=== PATIENT | female | born 1930 | race Hispanic/Latino ===

== ENCOUNTER 2017-01-10 16:38 | Emergency (ER) | payer MEDICARE ==
[2017-01-10 16:51] VITALS: O2SAT 98
--- NOTE | 2017-01-10 17:40 | ED PDOC ---
"HPI: Back Time Seen by Provider: 01/10/17 16:57 Chief Complaint (Nursing): Back Pain Chief Complaint (Provider): back pain History Per: Patient History/Exam Limitations: no limitations Additional Complaint(s): PT with hx of MT x 2, HTN, CVA in ED for eval of back injury sustained- yesterday after slip and fall in [facility] [facility]. denied pain at time of injury this AM took Tylenol and naproxen due to pain and noted the pain to be persistent-states its sharp and deep unable to pin point pain and not reproducible made somewhat worse with inspiration denies CP, SOB, CP, epigastirc pain, abd pain. Past Medical History Reviewed: Historical Data, Nursing Documentation, Vital Signs Vital Signs: Last Vital Signs Temp 98 F 01/10/17 16:48 Pulse 72 01/10/17 16:48 Resp 20 01/10/17 16:48 BP 150/77 01/10/17 16:48 Pulse Ox 98 01/10/17 16:48 - Medical History PMH: Atrial Fibrillation, CAD, Fractures (Vertebral), HTN, Hypercholesterolemia Denies: CVA, Diabetes, Chronic Kidney Disease - Surgical History Surgical History: Coronary Stent, Tonsillectomy - Family History Family History: States: Unknown Family Hx - Home Medications Home Medications: Ambulatory Orders Medication Instructions Recorded Aspirin [Ecotrin] 325 mg PO DAILY 04/06/16 Apixaban [Eliquis] 5 mg OD BID #0 tab 08/14/16 DULoxetine [Cymbalta] 30 mg PO BID #0 ecc 08/14/16 Gabapentin [Neurontin] 600 mg PO TID #0 tablet 08/14/16 Lidocaine 5% [Lidoderm] 1 patch TD PRN PRN #0 patch 08/14/16 Metoprolol Succinate [Toprol XL] 37.5 mg PO DAILY #0 tab 08/14/16 Simvastatin [Zocor] 40 mg PO HS #0 tablet 08/14/16 Ketorolac Tromethamine [Toradol] 10 mg PO Q6 #30 tab 01/10/17 Nitrofurantoin Macrocrystals 100 mg PO BID #14 cap 01/10/17 [Macrobid] - Allergies Allergies/Adverse Reactions: Allergies Allergy/AdvReac Type Severity Reaction Status Date / Time No Known Allergies Allergy Verified 01/10/17 16:48 Review of Systems ROS Statement: Except As Marked, All Systems Reviewed And Found Negative Cardiovascular: Negative for: Chest Pain, Palpitations Gastrointestinal: Negative for: Nausea, Vomiting, Abdominal Pain Musculoskeletal: Positive for: Back Pain Physical Exam - Reviewed Nursing Documentation Reviewed: Yes Vital Signs Reviewed: Yes - Physical Exam Appears: Positive for: Well, Non-toxic, No Acute Distress Head Exam: Positive for: ATRAUMATIC, NORMAL INSPECTION, NORMOCEPHALIC Skin: Positive for: Normal Color, Warm, DRY Neck: Positive for: Normal, Painless ROM Cardiovascular/Chest: Positive for: Regular Rate, Rhythm Respiratory: Positive for: CNT, Normal Breath Sounds Gastrointestinal/Abdominal: Positive for: Soft Back: Positive for: Normal Inspection, Other (tenderness not reproducble. pt with tenderness to mid thoracic. ) Extremity: Positive for: Normal ROM Neurologic/Psych: Positive for: Alert, Oriented - Laboratory Results Result Diagrams: 01/10/17 17:28 01/10/17 17:28 - ECG ECG Rhythm: Positive for: Normal QRS, Sinus Rhythm, 1st Degree Heart Block O2 Sat by Pulse Oximetry: 98 - Progress ED Course And Treament: EKG/cbc/CMP/D-dimer and Pt/PTT/xray-due to onset of pain, pain not reproducible and taking Rx eloquis. Pt with elevated D-dimer will need to have CTA Re-evaluation Time: 21:57 Condition: Improved (improved after torodol IV. ) Medical Decision Making Medical Decision Making: Ct scan: FINDINGS: Artifacts: Motion artifact degrades image quality.Streak artifact degrades image quality. Heart, aorta and Pulmonary arteries: The heart is enlarged.There is trace fluid in pericardial recesses. There are coronary artery stents.There is no aneurysm or dissection. There is perfusion of the 3 arch vessels.There are vascular calcifications.There are no pulmonary emboli. Thyroid: There is asymmetric enlargement of the thyroid. There is prominence of the right lobe. There are small punctate calcifications in the right lobe. There is a heterogeneous 8mm right lower lobe nodule. Lungs and Pleural space: Trachea and main bronchi are patent. There are calcified pleural plaques at both lung apices. There is nodular pleural thickening along the lateral aspects of both upper hemithoraces. There are small calcified granulomas in the upper lobes.. There is pleuralparenchymal scarring at both lung apices. There is dependent atelectasis. There is scarring at the lung bases. There is no lobar or segmental consolidation. There is trace right effusion. There is minimal airspace disease in the right costophrenic angle. HENRY LEDEZMA | Final Radiology Report CONFIDENTIALITY STATEMENT This report is intended only for use by the referring physician, and only in accordance with law. If you received this in error, call [phone]. Page 2 of 2 Mediastinum: Esophagus is unremarkable. There are shotty mediastinal adenopathy. There is no hilar adenopathy. Bones/joints: Bony structures are osteopenic.There are degenerative changes in the osseus structures. There is compression fracture at T7 with wedging deformity. There are less severe compression deformities T4, T8 and T9 Soft tissues: unremarkable Lymph nodes: See above. Upper abdomen: There are no acute abnormalities in the visualized portion of the abdomen. IMPRESSION: Mild cardiomegaly with coronary artery stents, no aneurysm, dissection or pulmonary embolus; calcified pleural plaques at the lung apices with pleural-parenchymal scarring greatest in the apices; dependent atelectasis; minimal airspace disease/atelectasis at the right base; multiple compression fractures Additional findings as described above. Thank you for allowing us to participate in the care of your patient. Dictated and Authenticated by: Farrah Sheridan MD 01/10/2017 9:29 PM Eastern Time ([place] & [place]) Pt improved in ED with morphine and torodol. admits torodol improved pain. pt with dx compression T-spine fx. pt feels pain is controlled well enough at this time for d/c home and prefers to be d/c home. Pt given Rx for torodol PO , copy of CT report and advised to have pmd/orth spie f/u. Pt states she gets epidural IM for spinal stenosis and will f.u with him. Pt also with UTI- on UA will Rx macorbid advised to monitor symptoms if with fever chills to return to ED pt stable VS and well appearing. Disposition - Clinical Impression Clinical Impression: Thoracic spine fracture, UTI (urinary tract infection), uncomplicated - Patient ED Disposition Is Patient to be Admitted: No Counseled Patient/Family Regarding: Studies Performed, Diagnosis, Need For Followup, Rx Given - Disposition Disposition: Routine/Home Disposition Time: 21:52 Condition: IMPROVED Prescriptions: Nitrofurantoin Macrocrystals [Macrobid] 100 mg PO BID #14 cap Ketorolac Tromethamine [Toradol] 10 mg PO Q6 #30 tab Instructions: Urinary Tract Infection in Women (DC), Vertebral Compression Fracture (ED)"
[2017-01-10 17:57] LABS: BASO % 0.4 % (0.0-2.0); EOS # 0.1 K/uL (0.0-0.7); EOS % 0.9 % (0.0-4.0); HEMATOCRIT 39.4 % (34.0-47.0); LYMPH # 0.9 K/uL (1.0-4.3); LYMPH % 12.1 % (20.0-40.0); MEAN CELL VOLUME 92.4 fl (81.0-99.0); MEAN CORPUSCULAR HEMOGLOBIN 29.8 pg (27.0-31.0); MEAN CORPUSCULAR HGB CONC 32.2 g/dL (33.0-37.0); MEAN PLATELET VOLUME 8.6 fl (7.2-11.7); MONO # 0.7 K/uL (0.0-0.8); MONO % 9.6 % (0.0-10.0); NEUT # 5.7 K/uL (1.8-7.0); RED CELL DISTRIBUTION WIDTH 13.1 % (11.5-14.5); WHITE BLOOD COUNT 7.5 K/uL (4.8-10.8)
[2017-01-10 18:08] LABS: ALB/GLOB RATIO 1.2 (1.0-2.1); ALKALINE PHOSPHATASE 72 U/L (38-126); ALT/SGPT 40 U/L (9-52); AST/SGOT 45 U/L (14-36); BILIRUBIN,TOTAL 0.7 mg/dl (0.2-1.3); BLOOD UREA NITROGEN 22 mg/dl (7-17); CALCIUM 8.8 mg/dL (8.4-10.2); CARBON DIOXIDE 27 mmol/L (22-30); CHLORIDE 101 mmol/L (98-107); GFR AFRICAN-AMERICAN > 60; GLUCOSE,RANDOM 162 mg/dL (65-105); POTASSIUM 3.6 MMOL/L (3.6-5.0); SODIUM 144 mmol/l (132-148); TOTAL PROTEIN 6.9 G/DL (6.3-8.2)
[2017-01-10 19:12] LABS: PARTIAL THROMBOPLASTIN TIME 29.7 SECONDS (23.3-32.5)
[2017-01-10] MEDS ORDERED: Iodixanol 320 MG/ML 100 ML BOTTLE IV ONE (19:47)
[2017-01-10 20:06] LABS: RBC URINE 8 /hpf (0-3); URINE BACTERIA OCC (<OCC); URINE BILIRUBIN NEGATIVE (NEGATIVE); URINE BLOOD SMALL (NEGATIVE); URINE COLOR YELLOW (YELLOW); URINE GLUCOSE (UA) NEG (Normal); URINE KETONE TRACE mg/dL (NEGATIVE); URINE LEUKOCYTE ESTERASE LARGE Leu/uL (Negative); URINE PROTEIN 30 mg/dL (NEGATIVE); URINE UROBILINOGEN 0.2-1.0 mg/dL (0.2-1.0); WBC URINE 27 /hpf (0-5)
--- NOTE | 2017-01-10 21:29 | CT ---
EXAM: CT Angiography Chest With Intravenous Contrast. CLINICAL HISTORY: 86 years old, female; Pain; Chest pain and other: Back SOB; Type not specified; Additional info: Back pain/ sob/ elevatec ddimer TECHNIQUE: Axial computed tomographic angiography images of the chest with intravenous contrast using pulmonary embolism protocol. This CT exam was performed using one or more of the following dose reduction techniques: automated exposure control, adjustment of the mA and/or kV according to patient size, and/or use of iterative reconstruction technique. MIP reconstructed images were created and reviewed. Coronal and sagittal reformatted images were created and reviewed. CONTRAST: 99 mL of [id number] administered intravenously. EXAM DATE/TIME: 01/10/2017 7:35 PM COMPARISON: CR - CHEST TWO VIEWS (PA/LAT) 04/07/2016 9:28:21 AM FINDINGS: Artifacts: Motion artifact degrades image quality.Streak artifact degrades image quality. Heart, aorta and Pulmonary arteries: The heart is enlarged.There is trace fluid in pericardial recesses. There are coronary artery stents.There is no aneurysm or dissection. There is perfusion of the 3 arch vessels.There are vascular calcifications.There are no pulmonary emboli. Thyroid: There is asymmetric enlargement of the thyroid. There is prominence of the right lobe. There are small punctate calcifications in the right lobe. There is a heterogeneous 8mm right lower lobe nodule. Lungs and Pleural space: Trachea and main bronchi are patent. There are calcified pleural plaques at both lung apices. There is nodular pleural thickening along the lateral aspects of both upper hemithoraces. There are small calcified granulomas in the upper lobes.. There is pleural-parenchymal scarring at both lung apices. There is dependent atelectasis. There is scarring at the lung bases. There is no lobar or segmental consolidation. There is trace right effusion. There is minimal airspace disease in the right costophrenic angle. Mediastinum: Esophagus is unremarkable. There are shotty mediastinal adenopathy. There is no hilar adenopathy. Bones/joints: Bony structures are osteopenic.There are degenerative changes in the osseus structures. There is compression fracture at T7 with wedging deformity. There are less severe compression deformities T4, T8 and T9 Soft tissues: unremarkable Lymph nodes: See above. Upper abdomen: There are no acute abnormalities in the visualized portion of the abdomen. IMPRESSION: Mild cardiomegaly with coronary artery stents, no aneurysm, dissection or pulmonary embolus; calcified pleural plaques at the lung apices with pleural-parenchymal scarring greatest in the apices; dependent atelectasis; minimal airspace disease/atelectasis at the right base; multiple compression fractures Additional findings as described above.
[2017-01-10 22:55] VITALS: BP 138/78; PULSE 78; RESP 18; TEMP 98.2
--- NOTE | 2017-01-11 14:37 | CARD ---
APPROVED REPORT EKG Measurement Heart [id number] <Conclusion> Sinus rhythm with 1st degree AV block Possible Anterior infarct, age undetermined Abnormal ECG
--- NOTE | 2017-01-12 09:17 | RAD ---
HISTORY: back pain COMPARISON: Comparison is made to the previous study dated 11/04/2011 FINDINGS: BONES: Diffuse moderate osteopenia/osteoporosis is again noted. There are multiple compression deformities in the thoracic spine more prominent at T6 and T8 associated with mild kyphosis. The patient is status post kyphoplasty at L1. DISC SPACES: Severe degenerative changes associated with narrowing of the disc spaces and osteophyte formations more prominent at T9-T10. SOFT TISSUES: Normal. OTHER FINDINGS: None. IMPRESSION: Moderate to severe diffuse osteopenia/ osteoporosis. Multiple compression deformities more prominent at T6 and T8. Status post kyphoplasty at L1.
== END 2017-01-10 22:55 | disposition home or self-care (01) ==
LOC: H.ER 16:38
DX: S22.009A Unspecified fracture of unspecified thoracic vertebra, initial encounter for closed fracture (principal); W19.XXXA Unspecified fall, initial encounter; Y92.89 Other specified places as the place of occurrence of the external cause; N39.0 Urinary tract infection, site not specified; E78.00 Pure hypercholesterolemia, unspecified; I10 Essential (primary) hypertension; I25.10 Atherosclerotic heart disease of native coronary artery without angina pectoris; Z79.01 Long term (current) use of anticoagulants; Z79.82 Long term (current) use of aspirin; Z95.5 Presence of coronary angioplasty implant and graft
CPT/HCPCS: 71275; 72070; 80053; 81003; 84484; 85025; 85378; 85610; 85730; 93005; 96374; 96375; 99283; J1885; J2270; Q9967

== ENCOUNTER 2018-07-28 07:57 | Inpatient (IN) | payer MEDICARE, BC ==
[2018-07-28 08:06] VITALS: BMI 21.9
[2018-07-28 09:29] LABS: BASO % 0.3 % (0.0-2.0); EOS # 0.1 K/uL (0.0-0.7); EOS % 1.4 % (0.0-4.0); HEMOGLOBIN 13.4 g/dL (12.0-16.0); LYMPH # 2.1 K/uL (1.0-4.3); LYMPH % 24.4 % (20.0-40.0); MEAN CELL VOLUME 93.1 fl (81.0-99.0); MEAN CORPUSCULAR HEMOGLOBIN 30.7 pg (27.0-31.0); MEAN PLATELET VOLUME 8.5 fl (7.2-11.7); MONO # 0.5 K/uL (0.0-0.8); NEUT # 5.8 K/uL (1.8-7.0); NEUT % 67.9 % (50.0-75.0); NRBC % 0.1 % (0.0-0.0); RBC 4.37 Mil/uL (3.80-5.20); RED CELL DISTRIBUTION WIDTH 12.7 % (11.5-14.5); WHITE BLOOD COUNT 8.5 K/uL (4.8-10.8)
[2018-07-28 09:37] LABS: INR 1.6; PROTHROMBIN TIME 17.9 Seconds (9.8-13.1)
[2018-07-28 09:39] LABS: PARTIAL THROMBOPLASTIN TIME 37.2 Seconds (25.6-37.1)
[2018-07-28 09:43] LABS: BLOOD UREA NITROGEN 17 mg/dl (7-17); CALCIUM 9.2 mg/dL (8.4-10.2); GFR NON-AFRICAN AMERICAN 59
--- NOTE | 2018-07-28 09:54 | ED PDOC ---
HPI: Chest Pain Time Seen by Provider: 07/28/18 08:46 Chief Complaint (Nursing): Chest Pain Chief Complaint (Provider): Chest Pain History Per: Patient History/Exam Limitations: no limitations Onset/Duration Of Symptoms: Hrs (x 2) Current Symptoms Are (Timing): Still Present Quality: Burning, "Pain" Nitro Therapy Administered: Per Own Supply Additional History Per: Family (children at bedside ) Additional Complaint(s): 87 year old female with a history of CAD, HTN, heart attack and cardiac stents presents to the ED with intermittent, mid chest pain associated with mild difficulty breathing since 06:45 this morning. Patient describes a burning sensation in her throat. She took nitroglycerin at home prior to arrival. She takes metoprolol, Eliquis, aspirin, duloxetine furosemide regularly and had a dose of each medication this morning. Denies fever, cough and leg swelling. PMD: Dr. Campbell Past Medical History Reviewed: Historical Data, Nursing Documentation, Vital Signs Vital Signs: Last Vital Signs Temp 97.8 F 07/28/18 08:06 Pulse 107 H 07/28/18 08:06 Resp 17 07/28/18 08:06 BP 86/56 L 07/28/18 08:06 Pulse Ox 100 07/28/18 08:18 - Medical History PMH: Atrial Fibrillation, CAD, Fractures (Vertebral), HTN, Hypercholesterolemia Denies: CVA, Diabetes, Chronic Kidney Disease - Surgical History Surgical History: Coronary Stent, Tonsillectomy - Family History Family History: States: Unknown Family Hx - Home Medications Home Medications: Ambulatory Orders Medication Instructions Recorded RX: Simvastatin [Zocor] 40 mg PO HS #0 tablet 08/14/16 RX: Apixaban [Eliquis] 5 mg PO Q12 07/28/18 RX: Aspirin [Ecotrin] 81 mg PO DAILY 07/28/18 RX: DULoxetine [Cymbalta] 60 mg PO Q12 07/28/18 RX: Furosemide [Lasix] 20 mg PO SUWE 07/28/18 RX: Lisinopril [Prinivil] 5 mg PO DAILY 30 Days #30 tablet 07/30/18 RX: Metoprolol Succinate 50 mg PO DAILY 30 Days #30 07/30/18 tab.er.24h - Allergies Allergies/Adverse Reactions: Allergies Allergy/AdvReac Type Severity Reaction Status Date / Time No Known Allergies Allergy Verified 01/10/17 16:48 TONI Risk Score for UA/NSTEMI - TONI Risk Score Age > 64: YES 3 or more CAD Risk Factors: YES Known CAD (Stenosis greater than 50%): NO Aspirin use in past 7 days: NO Severe Angina: NO EKG ST changes greater than 0.5mm: NO Positive Cardiac Marker: NO TONI Score: 2 Risk %: 8% Wells Criteria for PE - Wells Criteria for Pulmonary Embolism Clinical Signs and Symptoms of DVT: No P.E is #1 Diagnosis, or Equally Likely: No Heart Rate >100: No Immobilization at least 3 days;Surgery previous 4 weeks: No Previous, objectively diagnosed PE or DVT: No Hemoptysis: No Malignancy w/treatment within 6 months, or palliative: No Total Score: 0 Review of Systems ROS Statement: Except As Marked, All Systems Reviewed And Found Negative Constitutional: Negative for: Fever Cardiovascular: Positive for: Chest Pain (intermittent burning ) Respiratory: Positive for: Shortness of Breath (mild). Negative for: Cough Musculoskeletal: Negative for: Leg Pain (or swelling) Physical Exam - Reviewed Nursing Documentation Reviewed: Yes Vital Signs Reviewed: Yes - Physical Exam Appears: Positive for: Non-toxic, No Acute Distress Head Exam: Positive for: ATRAUMATIC Skin: Positive for: Normal Color, Warm, Dry Eye Exam: Positive for: EOMI, Normal appearance, PERRL Neck: Positive for: Normal, Painless ROM, Supple Cardiovascular/Chest: Positive for: Irregularly Irregular. Negative for: Murmur Respiratory: Positive for: Normal Breath Sounds. Negative for: Respiratory Distress Gastrointestinal/Abdominal: Positive for: Normal Exam, Soft. Negative for: Tenderness Extremity: Positive for: Normal ROM (x 4). Negative for: Deformity Neurologic/Psych: Positive for: Alert, Oriented (x 3). Negative for: Motor/Sensory Deficits - Laboratory Results Result Diagrams: 07/29/18 04:20 07/30/18 07:45 - ECG ECG: Positive for: Interpreted By Me, Viewed By Me ECG Rhythm: Positive for: Normal QRS, Atrial Fibrillation, Nonspecific Changes Rate: 111 O2 Sat by Pulse Oximetry: 100 (RA) Pulse Ox Interpretation: Normal Medical Decision Making Medical Decision Makin:08 Impression: Chest pain, Afib without RVR Differential diagnoses include but are not limited to: Initial Plan: --EKG --BNP --BMP --Troponin --CBC --PTT/INR --CXR --Aspirin 325 mg PO --Eliquis 5 mg PO 10:26 --Dr. Gilbert accepted patient for admission due to Afib and chest pain. Scribe Attestation: Documented by Lilliana Bermeo, acting as a scribe for Rio Camacho MD Provider Scribe Attestation: All medical record entries made by the Scribe were at my direction and personally dictated by me. I have reviewed the chart and agree that the record accurately reflects my personal performance of the history, physical exam, medical decision making, and the department course for this patient. I have also personally directed, reviewed, and agree with the discharge instructions and disposition. Disposition - Clinical Impression Clinical Impression: Acute chest pain - Patient ED Disposition Is Patient to be Admitted: Yes Discussed With : Christa Gilbert Doctor Will See Patient In The: ED Counseled Patient/Family Regarding: Studies Performed, Diagnosis - Disposition Disposition Time: 10:26 Condition: FAIR - Pt Status Changed To: Hospital Disposition Of: Observation - POA Present On Arrival: None
[2018-07-28 09:56] LABS: B-TYPE NATRIURETIC PEPTIDE 706 pg/ml (0-900)
--- NOTE | 2018-07-28 11:19 | CP.PCM.HP ---
Addendum entered and electronically signed by Chrsita Gilbert MD 07/28/18 18:49: Patient seen and examined bedside.All chart and clinical data reviewed. Case discussed with resident . Agree with assessment and plan 87 y/o female with PMH CAD s/p stents,HTN , dyslipidemia , TIA presented with midsternal chest pain and dyspnea that has been going on on and off for sometime . She did receive nitro that helped with her symptoms initial Trop was normal and EKG showed Afib with RVR 111 that converted to NSR spontaneously Placed under observation in telemetry and cardiology consulted repeat Trop elevated 0.57 Dx ; 1. Paroxysmal Afib presented with Afib with RVR in Er that converted back to SR cardiology consulted ' ordered echo , TSH patient is on Eliquist and metoprolol 2.Chest pain r/o NSTEMI Trop elevated 0.57 will continue current medical management , ASA ,statin, BB, Eliquist Continue Trend trop and repeat EKG in AM Dr. Amaro informed 3. HTN controlled resumed home meds 4. Dyslipidemia on statin Original Note: History of Present Illness - History of Present Illness History of Present Illness: CC: Patient presented to the ED due to complaints of "chest pain and burning" HPI: 87 y/o female with PMHx of CAD, HTN, TIA, HLD, and OR (x2) presented to the ED due to complaints of constant chest pain with burning and radiating pain to the right neck associated with nausea and shortness of breath, not exacerbated by deep inhalation or movement. Patient reports chest pain to substernal region. Patient denies palpitation or "racing heart". Patient states her pain started this morning around 7:00 AM after breakfast. Patient denies similar symptoms in the past. Patient called 911 and Patient reports taking Nitroglycerin prior to ED arrival. Patient states her initial symptoms have resolved at this time (patient reports symptoms resolved around 10:00 AM). Patient denies any change in pain with movement. Patient denies fever, vomiting, urinary symptoms, cough, constipation or diarrhea. Patient reports diarrhea earlier this week (Wednesday- Wednesday), however, states that has also resolved. Patient denies any recent travel. Patient reports she occasionally takes Tums for reflux, however, denies any reflux at this time. Patient reports taking all her morning medications. Vitals (upon arrival): 98.5 F, CT 72, BP 109/60, RR 18 CBC: 8.5>13.4/40.7<290 BMP: 142/4.0/103/26/17/0.9<172 PT/INR/PTT: 17.9, 1.6, 37.2 PMD: Dr. Campbell (Pulmonology), Sondra (Cardiology) PMHx: Hypertension, Transient Ischemic Attack (2016), Hyperlipidemia, CAD, OR (x2) PSHx: Hysterectomy, Appendectomy, Cardiac Cath (x2) with PCI Medications: Eliquis, Aspirin 81 mg, Duloxetine, Furosemide, Metoprolol, Simvastatin ED Course: - 1st Troponin- negative - Cardiology consult Dr. Amaro - Placed on nasal cannula - ASA 325 mg PO Present on Admission - Present on Admission Any Indicators Present on Admission: Yes History of DVT/PE: Yes History of Uncontrolled Diabetes: No Review of Systems - Constitutional Constitutional: Weakness. absent: Chills, Headache - EENT Eyes: absent: Blurred Vision, Change in Vision Ears: absent: Dizziness Nose/Mouth/Throat: absent: Dry Mouth, Dysphagia - Cardiovascular Cardiovascular: Chest Pain, Dyspnea, Pain Radiating to Arm/Neck/Jaw, Radiating Pain. absent: Palpitations, Rapid Heart Rate - Respiratory Respiratory: Dyspnea, Dyspnea on Exertion. absent: Cough, Wheezing - Gastrointestinal Gastrointestinal: Nausea. absent: Abdominal Pain, Vomiting - Genitourinary Genitourinary: absent: Difficulty Urinating, Urinary Frequency, Urinary Urgency - Integumentary Integumentary: absent: Swelling - Neurological Neurological: absent: Numbness, Tingling Past Patient History - Infectious Disease Hx of Infectious Diseases: None - Tetanus Immunizations Tetanus Immunization: Unknown - Past Medical History & Family History Past Medical History?: Yes - Past Social History Smoking Status: Never Smoked Chewing Tobacco Use: No Cigar Use: No Home Situation {Lives}: Alone - CARDIAC Hx Atrial Fibrillation: Yes Hx Hypercholesterolemia: Yes Hx Hypertension: Yes - PULMONARY Hx Respiratory Disorders: No - NEUROLOGICAL Hx Neurological Disorder: No - HEENT Hx HEENT Problems: No - RENAL Hx Chronic Kidney Disease: No - ENDOCRINE/METABOLIC Hx Endocrine Disorders: No - HEMATOLOGICAL/ONCOLOGICAL Hx Blood Disorders: Yes Hx Shingles: Yes (Feb, 2016) - INTEGUMENTARY Hx Dermatological Problems: Yes Other/Comment: See above. - MUSCULOSKELETAL/RHEUMATOLOGICAL Hx Fractures: Yes (Vertebral) - GASTROINTESTINAL Hx Gastrointestinal Disorders: No - GENITOURINARY/GYNECOLOGICAL Hx Genitourinary Disorders: No - PSYCHIATRIC Hx Psychophysiologic Disorder: No Hx Substance Use: No - SURGICAL HISTORY Hx Coronary Stent: Yes Hx Tonsillectomy: Yes - ANESTHESIA Hx Anesthesia: Yes Hx Anesthesia Reactions: No Hx Malignant Hyperthermia: No Meds Allergies/Adverse Reactions: Allergies Allergy/AdvReac Type Severity Reaction Status Date / Time No Known Allergies Allergy Verified 01/10/17 16:48 Physical Exam - Constitutional Appears: Well, Non-toxic, No Acute Distress - Head Exam Head Exam: ATRAUMATIC, NORMOCEPHALIC - Eye Exam Eye Exam: Normal appearance, PERRL - ENT Exam ENT Exam: Mucous Membranes Moist - Neck Exam Neck exam: Positive for: Full Rom. Negative for: Lymphadenopathy - Respiratory Exam Respiratory Exam: Clear to Auscultation Bilateral, NORMAL BREATHING PATTERN. absent: Rales, Rhonchi, Wheezes - Cardiovascular Exam Cardiovascular Exam: Irregular Rhythm. absent: JVD - GI/Abdominal Exam GI & Abdominal Exam: Normal Bowel Sounds, Soft. absent: Firm, Guarding, Rigid, Tenderness - Extremities Exam Extremities exam: Positive for: normal inspection, pedal pulses present. Negative for: calf tenderness, pedal edema Additional comments: ecchymosis noted at the base of the left 2nd digit - Back Exam Back exam: NORMAL INSPECTION. absent: CVA tenderness (L), CVA tenderness (R) - Neurological Exam Neurological exam: Alert, Oriented x3 - Psychiatric Exam Psychiatric exam: Normal Affect, Normal Mood - Skin Skin Exam: Dry, Intact, Normal Color Results - Vital Signs Recent Vital Signs: Last Vital Signs Temp 97.8 F 07/28/18 08:06 Pulse 84 07/28/18 10:27 Resp 24 07/28/18 10:27 BP 106/57 L 07/28/18 10:27 Pulse Ox 100 07/28/18 10:27 - Labs Result Diagrams: 07/28/18 09:00 07/28/18 09:00 Labs: Laboratory Results - last 24 hr 07/28/18 07/28/18 07/28/18 09:00 09:00 09:00 WBC 8.5 RBC 4.37 Hgb 13.4 Hct 40.7 MCV 93.1 MCH 30.7 MCHC 33.0 RDW 12.7 Plt Count 290 MPV 8.5 Neut % (Auto) 67.9 Lymph % (Auto) 24.4 [place] % (Auto) 6.0 Eos % (Auto) 1.4 Baso % (Auto) 0.3 Neut # (Auto) 5.8 Lymph # (Auto) 2.1 [place] # (Auto) 0.5 Eos # (Auto) 0.1 Baso # (Auto) 0.0 PT 17.9 H INR 1.6 APTT 37.2 H Sodium 142 Potassium 4.0 Chloride 103 Carbon Dioxide 26 Anion Gap 17 BUN 17 Creatinine 0.9 Est GFR ( Amer) > 60 Est GFR (Non-Af Amer) 59 Random Glucose 172 H Calcium 9.2 Troponin I 0.0190 NT-Pro-B Natriuret Pep 706 Assessment & Plan - Assessment and Plan (Free Text) Assessment: 87 y/o female patient with PMHx of HTN, HLD, CAD admitted for burning chest pain, radiating to the left neck Plan: 1) Chest pain associated with fatigue for 1 week- new onset correlates with recent addition of Lasix as per daughter, review of heart rate in the hospital shows multiple readings in the low 50s, prompting medication parameters for Lopressor - Troponin x 1 negative, F/U Serial Troponin Q8 - EKG: atrial fibrillation with rapid ventricular response, ST & T wave abnormality - CXR: follow up with official report - Cardiology Consult- Dr. Amaro - Cardiac monitoring on Telemetry - Repeat EKG and CXR tomorrow - Nitroglycerin 0.4 mg SL Q5M PRN - F/U ECHO 2) Preserved Heart Failure- no clinical evidence of acute exacerbation, asymptomatic, chronic. As per daughter, patient was recently started on Lasix twice weekly - ECHO (08/13/16)- Normal LV systolic function, impaired diastolic relaxation, no signs of aortic stenosis or insufficiency - F/U ECHO - Lasix on hold 3) Atrial Fibrillation- patient was symptomatic, rate not controlled, will follow up cardiology recommendations - Continue Eliquis 5 mg PO Q12 - Continue Metoprolol 37.5 mg PO with hold parameters 4) Hypertension- - asymptomatic, chronic, controlled - Continue with home regimen Metoprolol 37.5 mg PO with hold parameters 5) Coronary Artery Disease - Continue with Aspirin 81 mg - Heart Healthy Diet 2gm sodium restricted 6) Hyperlipidemia - chronic, controlled - continue home regimen Atorvastatin 20 mg PO HS 7) DVT Prophylaxis - continue with Eliquis 5 mg PO Q12
--- NOTE | 2018-07-28 13:32 | RAD ---
Date of service: 07/28/2018 PROCEDURE: CHEST RADIOGRAPH, 1 VIEW HISTORY: chest pain COMPARISON: 08/13/2016 FINDINGS: LUNGS: Clear. PLEURA: No pneumothorax or pleural fluid seen. CARDIOVASCULAR: No radiographic findings to suggest acute or significant cardiovascular disease. OSSEOUS STRUCTURES: No significant abnormalities. Findings related to prior kyphoplasty L1 vertebral body. VISUALIZED UPPER ABDOMEN: Normal. OTHER FINDINGS: None. IMPRESSION: No active disease. No acute/significant interval changes.
--- NOTE | 2018-07-28 18:19 | CARD ---
APPROVED REPORT Date of service: 07/28/2018 EXAM: Two-dimensional and M-mode echocardiogram with Doppler and color Doppler. Other Information Quality : AverageRhythm : NSR INDICATION Dyspnea Fatigue Atrial Fibrillation Chest Pain 2D DIMENSIONS IVSd1.19 (0.7-1.1cm)LVDd2.94 (3.9-5.9cm) LVOT Diameter2.14 (1.8-2.4cm)PWd1.41 (0.7-1.1cm) IVSs1.43 (0.8-1.2cm)LVDs2.07 (2.5-4.0cm) FS (%) 29.5 %PWs1.52 (0.8-1.2cm) M-Mode DIMENSIONS Left Atrium (MM)4.14 (2.5-4.0cm)IVSd0.94 (0.7-1.1cm) Aortic Root2.95 (2.2-3.7cm)LVDd3.81 (4.0-5.6cm) Aortic Cusp Exc.1.38 (1.5-2.0cm)PWd1.10 (0.7-1.1cm) IVSs0.91 cmFS (%) 34 % LVDs2.51 (2.0-3.8cm)PWs1.10 cm Aortic Valve AoV Peak Qilvxqrk23.3cm/sAoV VTI16.4cmAO Peak GR.4mmHg LVOT Peak Dqbfmybd68.7cm/sLVOT VTI14.54cmAO Mean GR.2mmHg GEOFFREY (VMAX)1.04bl7STT (VTI)1.83cm2 Mitral Valve E/A ratio0.0 TDI E/Lateral E'0.0E/Medial E'0.0 Pulmonary Valve PV Peak Npgqtidb48.1cm/s LEFT VENTRICLE The left ventricle is normal size. There is mild concentric left ventricular hypertrophy. The left ventricular systolic function is normal. The estimated ejection fraction is 60-65% No regional wall motion abnormalities noted.. Transmitral Doppler flow pattern is Grade I-abnormal relaxation pattern. No left ventricle thrombus noted on this study. There is no ventricular septal defect visualized. There is no left ventricular aneurysm. There is no mass noted in the left ventricle. RIGHT VENTRICLE The right ventricle is normal size. There is normal right ventricular wall thickness. The right ventricular systolic function is normal. ATRIA The left atrium is mildly dilated. The right atrium size is normal. The interatrial septum is intact with no evidence for an atrial septal defect. AORTIC VALVE The aortic valve is normal in structure. No aortic regurgitation is present. There is no aortic valvular stenosis. There is no aortic valvular vegetation. MITRAL VALVE The mitral valve is normal in structure. There is no evidence of mitral valve prolapse. There is no mitral valve stenosis. There is no mitral valve regurgitation noted. TRICUSPID VALVE The tricuspid valve is normal in structure. There is no tricuspid valve regurgitation noted. RVSP could not be assessed. There is no tricuspid valve prolapse or vegetation. There is no tricuspid valve stenosis. PULMONIC VALVE The pulmonary valve is normal in structure. There is trace pulmonic valvular regurgitation. There is no pulmonic valvular stenosis. GREAT VESSELS The aortic root is normal in size. The ascending aorta is normal in size. The pulmonary artery is normal. The IVC is normal in size and collapses >50% with inspiration. PERICARDIAL EFFUSION There is no pericardial effusion. There is no pleural effusion. <Conclusion> The estimated ejection fraction is 60-65%. There is mild concentric left ventricular hypertrophy. Transmitral Doppler flow pattern is Grade I-abnormal relaxation pattern. The left atrium is mildly dilated. There is no tricuspid valve regurgitation noted. RVSP could not be assessed.
--- NOTE | 2018-07-28 18:34 | CARD ---
APPROVED REPORT Date of service: 07/28/2018 EKG Measurement Heart [id number] <Conclusion> Atrial fibrillation with rapid ventricular response Voltage criteria for left ventricular hypertrophy ST & T wave abnormality, consider lateral ischemia Abnormal ECG
[2018-07-28] MEDS ORDERED: Influenza Vaccine (5 YR UP)/PF 60 MCG/0.5 ML SYR IM ONE (20:00)
[2018-07-29 05:49] LABS: HEMOGLOBIN 13.1 g/dL (12.0-16.0); MEAN CELL VOLUME 92.6 fl (81.0-99.0); MEAN CORPUSCULAR HEMOGLOBIN 31.1 pg (27.0-31.0); MEAN CORPUSCULAR HGB CONC 33.6 g/dL (33.0-37.0); RBC 4.19 Mil/uL (3.80-5.20); RED CELL DISTRIBUTION WIDTH 12.9 % (11.5-14.5); WHITE BLOOD COUNT 7.1 K/uL (4.8-10.8)
[2018-07-29 06:13] LABS: LDL CHOLESTEROL 66 mg/dL (0-129)
[2018-07-29 06:31] LABS: ALB/GLOB RATIO 1.1 (1.0-2.1); ALBUMIN 3.6 g/dL (3.5-5.0); ALT/SGPT 25 U/L (9-52); AST/SGOT 29 U/L (14-36); BLOOD UREA NITROGEN 25 mg/dl (7-17); CALCIUM 9.4 mg/dL (8.4-10.2); GFR NON-AFRICAN AMERICAN > 60; HDL CHOLESTEROL 49 MG/DL (30-70)
[2018-07-29] MEDS ORDERED: Metoprolol Succinate 25 mg XL Tab PO SCH ×2 (09:00)
--- NOTE | 2018-07-29 10:09 | CARD ---
APPROVED REPORT Date of service: 07/28/2018 EKG Measurement Heart [id number] <Conclusion> Sinus rhythm with 1st degree AV block Left ventricular hypertrophy with repolarization abnormality Inferior infarct, age undetermined Abnormal ECG
--- NOTE | 2018-07-29 10:17 | CARD ---
APPROVED REPORT Date of service: 07/29/2018 EKG Measurement Heart [id number] <Conclusion> Sinus rhythm with 1st degree AV block Left ventricular hypertrophy with repolarization abnormality Inferior infarct, age undetermined Abnormal ECG
--- NOTE | 2018-07-29 10:19 | CP.PCM.CON ---
History of Present Illness - History of Present Illness History of Present Illness: This 87-year-old female with known coronary artery disease wet suffered an acute inferior wall myocardial infarction in 2001 and during a catheterization at that time was found to have normal coronary arteries but mild rheumatic mitral stenosis. The patient subsequently woke warfarin on the presumption that she had suffered an embolism of coronary artery. In 2007 she had another myocardial infarction and required coronary stenting at that time. She took aspirin and Plavix for a year and subsequently was changed back to warfarin again. The patient has never been a smoker and did not have diabetes mellitus. She has an adequate effort tolerance to attend to her old a two-day needs. The patient arrived in the emergency room yesterday after experiencing a tightness in the upper part of her chest. This was not accompanied by nausea vomiting or perspiration. The patient does admit to having experienced some palpitations at the same time. She denies sudden shortness of breath. And electro-cardial gram obtained in the emergency room on arrival shows atrial fibrillation at 111 bpm with a pattern suggestive of left ventricular hypertrophy and an old inferior wall myocardial infarction. A follow-up electrocardiogram in the evening shows the patient has reverted back to sinus rhythm. Physical examination shows an elderly pleasant female who is able to lie virtually flat in bed and breathes comfortably at 16 breaths per minute. She has a heart rate off 78 bpm regular and a blood pressure of 140/70 mmHg. Her jugular venous pressure was not elevated and there was no edema over his lower extremity. The pedal pulses were well felt. There were no carotid bruits. The spine was mildly kyphotic. The apex was no face pain is the first and second heart sounds were normal there was no murmur or gallop. There were no rales. An opening snap was not audible. Abdomen was soft liver and spleen are not palpable. Again her electrocardiogram this morning shows sinus rhythm with Q waves in lead 3 and aVF indicative of an old inferior wall myocardial infarction. Her labs show a normal troponin level at arrival in the emergency room which subsequently florentino to 0.5 and now is trending down 2.2 ng per mL. The rest of her labs were noted. I have reviewed her echocardiogram which shows a preserved left ventricular systolic function and a typical anterior mitral leaflet motion indicating of mitral valve stenosis.(There is no significant gradient between left atrium and left ventricle indicating that this is a mild mitral stenosis) Impression: Atrial fibrillation in a patient with known coronary artery disease and rheumatic mitral stenosis (mild), myocardial necrosis most likely precipitated by a bout of atrial fibrillation. The echocardiogram shows preserved left ventricular systolic function and her electrocardiograms after returning to sinus rhythm do not show any significant ST-T abnormalities or new Q waves. I have explained these findings to the patient and her son. I have recommended that her dose of metoprolol be increased from 37.5 mg every day to 50 mg every day. She will continue to take liquids and an aspirin. She is hemodynamically stable at this point. Past Patient History - Infectious Disease Hx of Infectious Diseases: None - Tetanus Immunizations Tetanus Immunization: Unknown - Past Medical History & Family History Past Medical History?: Yes - Past Social History Smoking Status: Never Smoked Chewing Tobacco Use: No Cigar Use: No Home Situation {Lives}: Alone - CARDIAC Hx Atrial Fibrillation: Yes Hx Hypercholesterolemia: Yes Hx Hypertension: Yes - PULMONARY Hx Respiratory Disorders: No - NEUROLOGICAL Hx Neurological Disorder: No - HEENT Hx HEENT Problems: No - RENAL Hx Chronic Kidney Disease: No - ENDOCRINE/METABOLIC Hx Endocrine Disorders: No - HEMATOLOGICAL/ONCOLOGICAL Hx Blood Disorders: Yes Hx Shingles: Yes (Feb, 2016) - INTEGUMENTARY Hx Dermatological Problems: Yes Other/Comment: See above. - MUSCULOSKELETAL/RHEUMATOLOGICAL Hx Fractures: Yes (Vertebral) - GASTROINTESTINAL Hx Gastrointestinal Disorders: No - GENITOURINARY/GYNECOLOGICAL Hx Genitourinary Disorders: No - PSYCHIATRIC Hx Psychophysiologic Disorder: No Hx Substance Use: No - SURGICAL HISTORY Hx Coronary Stent: Yes Hx Tonsillectomy: Yes - ANESTHESIA Hx Anesthesia: Yes Hx Anesthesia Reactions: No Hx Malignant Hyperthermia: No Meds Allergies/Adverse Reactions: Allergies Allergy/AdvReac Type Severity Reaction Status Date / Time No Known Allergies Allergy Verified 01/10/17 16:48 - Medications Medications: Current Medications Apixaban (Eliquis) 5 mg PO Q12 [facility]; Protocol Last Admin: 07/29/18 09:15 Dose: 5 mg Aspirin (Ecotrin) 81 mg PO DAILY [facility] Last Admin: 07/29/18 09:15 Dose: 81 mg Atorvastatin Calcium (Lipitor) 20 mg PO HS [facility] Last Admin: 07/28/18 22:16 Dose: 20 mg Duloxetine HCl (Cymbalta) 60 mg PO Q12 [facility] Last Admin: 07/29/18 09:15 Dose: 60 mg Lisinopril (Zestril) 5 mg PO DAILY [facility] Metoprolol Succinate (Toprol Xl) 37.5 mg PO DAILY [facility] Last Admin: 07/29/18 09:16 Dose: 37.5 mg Nitroglycerin (Nitrostat Sl Tab) 0.4 mg SL Q5M PRN PRN Reason: chest pain Results - Vital Signs Recent Vital Signs: Last Vital Signs Temp 97.8 F 07/29/18 08:17 Pulse 76 07/29/18 09:16 Resp 18 07/29/18 08:17 BP 130/74 07/29/18 09:16 Pulse Ox 97 07/29/18 08:17 - Labs Result Diagrams: 07/29/18 04:20 07/29/18 04:20 Labs: Laboratory Results - last 24 hr 07/28/18 07/29/18 07/29/18 17:09 02:00 04:20 WBC RBC Hgb Hct MCV MCH MCHC RDW Plt Count Sodium 142 Potassium 5.1 H Chloride 103 Carbon Dioxide 35 H Anion Gap 9 L BUN 25 H Creatinine 0.8 Est GFR ( Amer) > 60 Est GFR (Non-Af Amer) > 60 Random Glucose 98 Calcium 9.4 Phosphorus 4.5 Magnesium 2.1 Total Bilirubin 0.6 AST 29 ALT 25 Alkaline Phosphatase 69 Troponin I 0.5720 H* 0.3080 H* 0.2330 H* Total Protein 6.8 Albumin 3.6 Globulin 3.3 Albumin/Globulin Ratio 1.1 Triglycerides 125 D Cholesterol 146 LDL Cholesterol Direct 66 HDL Cholesterol 49 TSH 3rd Generation 0.47 07/29/18 04:20 WBC 7.1 RBC 4.19 Hgb 13.1 Hct 38.8 MCV 92.6 MCH 31.1 H MCHC 33.6 RDW 12.9 Plt Count 247 Sodium Potassium Chloride Carbon Dioxide Anion Gap BUN Creatinine Est GFR ( Amer) Est GFR (Non-Af Amer) Random Glucose Calcium Phosphorus Magnesium Total Bilirubin AST ALT Alkaline Phosphatase Troponin I Total Protein Albumin Globulin Albumin/Globulin Ratio Triglycerides Cholesterol LDL Cholesterol Direct HDL Cholesterol TSH 3rd Generation
--- NOTE | 2018-07-29 10:29 | CP.PCM.PN ---
Addendum entered by Alyssa Hart MD 07/29/18 18:16: We will continue medical management of NSTEMI of 87 y/o lady with Elevated Troponin will continue Telemetry monitoring Surrogate decision maker - pop Hagen Original Note: <Elvis Honeycutt - Last Filed: 07/29/18 11:15> Subjective - Date & Time of Evaluation Date of Evaluation: 07/29/18 Time of Evaluation: 10:22 - Subjective Subjective: 87 y/o female was seen and evaluated at bedside. Patient was resting comfortably, and in no acute distress. Patient further denies any complaints of chest pain at this time. Patient was evaluated with Dr. Amaro at bedside. Patient denies fever, nausea, vomiting, chest pain, SOB, urinary symptoms, c ough, constipation or diarrhea at this time. Patient reports she lives alone in a senior citizen building, however does not use any assistance for ambulation. Patient states family lives nearby, and she prefers to go home instead of [facility]. Objective - Vital Signs/Intake and Output Vital Signs (last 24 hours): Temp Pulse Resp BP Pulse Ox 97.8 F 76 18 130/74 97 07/29/18 08:17 07/29/18 09:16 07/29/18 08:17 07/29/18 09:16 07/29/18 08:17 - Medications Medications: Current Medications Apixaban (Eliquis) 5 mg PO Q12 [facility]; Protocol Last Admin: 07/29/18 09:15 Dose: 5 mg Aspirin (Ecotrin) 81 mg PO DAILY [facility] Last Admin: 07/29/18 09:15 Dose: 81 mg Atorvastatin Calcium (Lipitor) 20 mg PO HS [facility] Last Admin: 07/28/18 22:16 Dose: 20 mg Duloxetine HCl (Cymbalta) 60 mg PO Q12 [facility] Last Admin: 07/29/18 09:15 Dose: 60 mg Lisinopril (Zestril) 5 mg PO DAILY [facility] Metoprolol Succinate (Toprol Xl) 37.5 mg PO DAILY [facility] Last Admin: 07/29/18 09:16 Dose: 37.5 mg Nitroglycerin (Nitrostat Sl Tab) 0.4 mg SL Q5M PRN PRN Reason: chest pain - Labs Labs: 07/29/18 04:20 07/29/18 04:20 PT 17.9 Seconds (9.8-13.1) H 07/28/18 09:00 INR 1.6 07/28/18 09:00 APTT 37.2 Seconds (25.6-37.1) H 07/28/18 09:00 - Constitutional Appears: Well, Non-toxic, No Acute Distress - Head Exam Head Exam: ATRAUMATIC, NORMOCEPHALIC - Eye Exam Eye Exam: Normal appearance, PERRL - ENT Exam ENT Exam: Mucous Membranes Moist - Neck Exam Neck Exam: Full ROM. absent: Lymphadenopathy - Respiratory Exam Respiratory Exam: Clear to Ausculation Bilateral, NORMAL BREATHING PATTERN. absent: Rales, Rhonchi, Wheezes - Cardiovascular Exam Cardiovascular Exam: Irregular Rhythm, +S1, +S2 - GI/Abdominal Exam GI & Abdominal Exam: Soft, Normal Bowel Sounds. absent: Guarding, Rigid, Tenderness - Extremities Exam Extremities Exam: absent: Calf Tenderness, Pedal Edema Additional comments: ecchymosis noted at the base of the left 2nd digit - Back Exam Back Exam: NORMAL INSPECTION. 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 Amaro- hemodynamically stable for discharge on 07/30/18, recommends metoprolol be increased from 37.5 mg every day to 50 mg every day. She will continue to take liquids and an aspirin - Cardiac monitoring on Telemetry for another 24 hours - Nitroglycerin 0.4 mg SL Q5M PRN 2) Preserved Heart Failure- - ECHO (07/29/18)- shows a preserved left ventricular systolic function and a typical anterior mitral leaflet motion indicating of mitral valve stenosis - Lasix on hold 3) Paroxsymal Atrial Fibrillation- patient was symptomatic, rate controlled, rhythm controlled since admission - Continue Eliquis 5 mg PO Q12 - Metoprolol was increased to 50 mg PO Daily 4) Hypertension- - asymptomatic, chronic, controlled - Dr. Amaro recommends metoprolol be increased from 37.5 mg every day to 50 mg every day - Lisinopril 5 mg PO daily 5) Coronary Artery Disease - Continue with Aspirin 81 mg - Heart Healthy Diet 2gm sodium restricted 6) Hyperlipidemia - chronic, controlled - continue home regimen Atorvastatin 20 mg PO HS 7) DVT Prophylaxis - continue with Eliquis 5 mg PO Q12 <Alyssa Hart - Last Filed: 07/29/18 16:47> Objective - Vital Signs/Intake and Output Vital Signs (last 24 hours): Temp Pulse Resp BP Pulse Ox 97.9 F 81 18 120/73 98 07/29/18 16:01 07/29/18 16:01 07/29/18 16:01 07/29/18 16:01 07/29/18 16:01 - Medications Medications: Current Medications Apixaban (Eliquis) 5 mg PO Q12 [facility]; Protocol Last Admin: 07/29/18 09:15 Dose: 5 mg Aspirin (Ecotrin) 81 mg PO DAILY [facility] Last Admin: 07/29/18 09:15 Dose: 81 mg Atorvastatin Calcium (Lipitor) 20 mg PO HS [facility] Last Admin: 07/28/18 22:16 Dose: 20 mg Duloxetine HCl (Cymbalta) 60 mg PO Q12 [facility] Last Admin: 07/29/18 09:15 Dose: 60 mg Lisinopril (Zestril) 5 mg PO DAILY [facility] Metoprolol Succinate (Toprol Xl) 50 mg PO DAILY [facility] Nitroglycerin (Nitrostat Sl Tab) 0.4 mg SL Q5M PRN PRN Reason: chest pain - Labs Labs: 07/29/18 04:20 07/29/18 04:20 PT 17.9 Seconds (9.8-13.1) H 07/28/18 09:00 INR 1.6 07/28/18 09:00 APTT 37.2 Seconds (25.6-37.1) H 07/28/18 09:00 Attending/Attestation - Attestation I have personally seen and examined this patient.: Yes I have fully participated in the care of the patient.: Yes I have reviewed all pertinent clinical information, including history, physical exam and plan: Yes
[2018-07-30 05:41] VITALS: RESP 20; TEMP 98
[2018-07-30 08:44] VITALS: BP 122/75
[2018-07-30 08:57] LABS: BLOOD UREA NITROGEN 20 mg/dl (7-17); GFR NON-AFRICAN AMERICAN > 60
[2018-07-30] MEDS ORDERED: Metoprolol Succinate 50 mg XL Tab PO SCH (09:00)
--- NOTE | 2018-07-30 10:05 | CP.PCM.DIS ---
Addendum entered and electronically signed by Christa Gilbert MD 07/30/18 14:00: Patient was seen and examined . All chart and clinical data reviewed . Case discussed with resident . Agree with assessment and discharge planning . 87 y/o female with PMH CAD, HTN , dyslipidemia was admitted for pressure like pain over her upper chest . She was placed under observation in telemetry , placed on front desk monitor, Trop and EKG Q8 h were ordered. She was continued on her home meds, ASA, statin, Metoprolol,Eliquist Initial EKG showed atrial fibrilation and negative troponin.Cardiology was consulted. Subsequent EKG showed NSR with old Inferior RI and Trop reported as positive 0.5 Her echo showed preserved EF . After discussion with family and press tool maker was decided to continue with medical management at present . Patient was monitored in telemetry for another 12 hours and noted to be hemodynamically stable, chest pain free and her troponin started to trend down. Metoprolol dose was increased to 50 mg . Recommended to continue ASa , Eliquist and Statin Patient to follow up with her press tool maker Dr. Amaro after discharge Will d/c patient home. Diagnosis NSTEMI Paroxysmal Afib CAD Hypertension Dyslipidemia Original Note: Provider - Provider Date of Admission: 07/29/18 18:15 Attending physician: Christa Gilbert MD Time Spent in preparation of Discharge (in minutes): 30 Diagnosis - Discharge Diagnosis (1) Chest pain Status: Acute Hospital Course - Lab Results Lab Results: Most Recent Lab Values WBC 7.1 K/uL (4.8-10.8) 07/29/18 04:20 RBC 4.19 Mil/uL (3.80-5.20) 07/29/18 04:20 Hgb 13.1 g/dL (12.0-16.0) 07/29/18 04:20 Hct 38.8 % (34.0-47.0) 07/29/18 04:20 MCV 92.6 fl (81.0-99.0) 07/29/18 04:20 MCH 31.1 pg (27.0-31.0) H 07/29/18 04:20 MCHC 33.6 g/dL (33.0-37.0) 07/29/18 04:20 RDW 12.9 % (11.5-14.5) 07/29/18 04:20 Plt Count 247 K/uL (130-400) 07/29/18 04:20 MPV 8.5 fl (7.2-11.7) 07/28/18 09:00 Neut % (Auto) 67.9 % (50.0-75.0) 07/28/18 09:00 Lymph % (Auto) 24.4 % (20.0-40.0) 07/28/18 09:00 Dane % (Auto) 6.0 % (0.0-10.0) 07/28/18 09:00 Eos % (Auto) 1.4 % (0.0-4.0) 07/28/18 09:00 Baso % (Auto) 0.3 % (0.0-2.0) 07/28/18 09:00 Neut # (Auto) 5.8 K/uL (1.8-7.0) 07/28/18 09:00 Lymph # (Auto) 2.1 K/uL (1.0-4.3) 07/28/18 09:00 Dane # (Auto) 0.5 K/uL (0.0-0.8) 07/28/18 09:00 Eos # (Auto) 0.1 K/uL (0.0-0.7) 07/28/18 09:00 Baso # (Auto) 0.0 K/uL (0.0-0.2) 07/28/18 09:00 PT 17.9 Seconds (9.8-13.1) H 07/28/18 09:00 INR 1.6 07/28/18 09:00 APTT 37.2 Seconds (25.6-37.1) H 07/28/18 09:00 Sodium 141 mmol/l (132-148) 07/30/18 07:45 Potassium 4.7 MMOL/L (3.6-5.0) 07/30/18 07:45 Chloride 102 mmol/L (98-107) 07/30/18 07:45 Carbon Dioxide 34 mmol/L (22-30) H 07/30/18 07:45 Anion Gap 10 (10-20) 07/30/18 07:45 BUN 20 mg/dl (7-17) H 07/30/18 07:45 Creatinine 0.7 mg/dl (0.7-1.2) 07/30/18 07:45 Est GFR ( Amer) > 60 07/30/18 07:45 Est GFR (Non-Af Amer) > 60 07/30/18 07:45 Random Glucose 98 mg/dL (65-105) 07/30/18 07:45 Calcium 9.0 mg/dL (8.4-10.2) 07/30/18 07:45 Phosphorus 4.5 mg/dl (2.5-4.5) 07/29/18 04:20 Magnesium 2.1 MG/DL (1.6-2.3) 07/29/18 04:20 Total Bilirubin 0.6 mg/dl (0.2-1.3) 07/29/18 04:20 AST 29 U/L (14-36) 07/29/18 04:20 ALT 25 U/L (9-52) 07/29/18 04:20 Alkaline Phosphatase 69 U/L (38-126) 07/29/18 04:20 Troponin I 0.2330 ng/mL (0.00-0.120) H* 07/29/18 04:20 NT-Pro-B Natriuret Pep 706 pg/ml (0-900) 07/28/18 09:00 Total Protein 6.8 G/DL (6.3-8.2) 07/29/18 04:20 Albumin 3.6 g/dL (3.5-5.0) 07/29/18 04:20 Globulin 3.3 gm/dL (2.2-3.9) 07/29/18 04:20 Albumin/Globulin Ratio 1.1 (1.0-2.1) 07/29/18 04:20 Triglycerides 125 mg/DL (0-149) D 07/29/18 04:20 Cholesterol 146 mg/dL (0-199) 07/29/18 04:20 LDL Cholesterol Direct 66 mg/dL (0-129) 07/29/18 04:20 HDL Cholesterol 49 MG/DL (30-70) 07/29/18 04:20 TSH 3rd Generation 0.47 mIU/ML (0.46-4.68) 07/29/18 04:20 - Hospital Course Hospital Course: 87 y/o female patient with PMHx of HTN, HLD, CAD was admitted for chest pain. 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 Amaro- for discharge on 07/30/18, recommended metoprolol be increased from 37.5 mg every day to 50 mg every day. - Continue with asprin - No acture changes or eppisodes of a fib on telemetry 2) Preserved Heart Failure- - ECHO (07/29/18)- shows a preserved left ventricular systolic function and a typical anterior mitral leaflet motion indicating of mitral valve stenosis - Lasix on hold 3) Paroxsymal Atrial Fibrillation- patient was symptomatic on admission howver has remained rate controlled, rhythm controlled since admission - Continue Eliquis 5 mg PO Q12 - Metoprolol was increased to 50 mg PO Daily 4) Hypertension- - asymptomatic, chronic, controlled - Dr. Amaro recommends metoprolol be increased from 37.5 mg every day to 50 mg every day - Lisinopril 5 mg PO daily 5) Coronary Artery Disease - Continue with Aspirin 81 mg 6) Hyperlipidemia - chronic, controlled - continue home regimen Atorvastatin 20 mg PO HS 7) DVT Prophylaxis - continue with Eliquis 5 mg PO Q12 Discharge Exam - Head Exam Head Exam: ATRAUMATIC, NORMOCEPHALIC - Eye Exam Eye Exam: Normal appearance - Respiratory Exam Respiratory Exam: Clear to PA & Lateral, UNREMARKABLE. absent: Wheezes, Respiratory Distress - Cardiovascular Exam Cardiovascular Exam: REGULAR RHYTHM, +S1, +S2 - GI/Abdominal Exam GI & Abdominal Exam: Normal Bowel Sounds, Soft. absent: Tenderness - Neurological Exam Neurological exam: Alert, CN II-XII Intact, Oriented x3 - Skin Skin Exam: Normal Color, Warm Discharge Plan - Discharge Medications Prescriptions: Lisinopril [Prinivil] 5 mg PO DAILY 30 Days #30 tablet Metoprolol Succinate 50 mg PO DAILY 30 Days #30 tab.er.24h - Follow Up Plan Condition: STABLE Disposition: HOME/ ROUTINE Instructions: Chest Pain Additional Instructions: Patient is stable for discharge. - Follow up with PMD in 1-2 days. - Medications has been electronically sent to patients pharmacy. Continue with current home medications,Metoprolol has been increased to 50 mg as recommended by cardiology and new medication of Lisinopril 5 mg daily. Referrals: Sean Amaro MD [Staff Provider] - Daniel Campbell MD [Family Provider] -
[2018-08-01 15:13] VITALS: PULSE 111; O2SAT 100
== END 2018-07-30 11:14 | disposition home or self-care (01) | DRG 281 ==
LOC: H.ER 07:57 → H.ERHOLD 10:26 → H.TEL 11:34 → OBSVTOIN 07-29 18:15
PROVIDERS: ADMIT Hospitalist; ATTEND Hospitalist
DX: I21.4 Non-ST elevation (NSTEMI) myocardial infarction (principal); I50.32 Chronic diastolic (congestive) heart failure; I48.0 Paroxysmal atrial fibrillation; I11.0 Hypertensive heart disease with heart failure; I25.10 Atherosclerotic heart disease of native coronary artery without angina pectoris; I05.0 Rheumatic mitral stenosis; E78.5 Hyperlipidemia, unspecified; E78.00 Pure hypercholesterolemia, unspecified; I25.2 Old myocardial infarction; Z23 Encounter for immunization; Z95.5 Presence of coronary angioplasty implant and graft; Z86.73 Personal history of transient ischemic attack (TIA), and cerebral infarction without residual deficits; Z79.01 Long term (current) use of anticoagulants; Z79.82 Long term (current) use of aspirin